=== PATIENT | female | born 1960 | race Caucasian/White ===

== ENCOUNTER 2019-01-15 11:32 | Emergency (ER) | payer MEDICARE, SELFPAY ==
[2019-01-15 11:34] VITALS: BP 111/67; PULSE 102; RESP 20; TEMP 36.8; O2SAT 93
--- NOTE | 2019-01-15 11:45 | NUR.NOTE ---
Nursing Note: pt states she takes about 30 pills on a daily basis- is unable to remember what medications she takes. Prescriptions are written by [facility]. Will attempt to get records.
--- NOTE | 2019-01-15 11:50 | DI.RAD_ITS ---
SYMPTOMS/DIAGNOSIS: BACK PAIN FOR 2 HOURS LUMBAR SPINE: There are no prior comparison exams. There is hardware at the L4-5 level related to previous posterior fusion. There is severe narrowing of the L5-S1 disc space and facet degenerative changes. There is also moderate narrowing of the L3-4 disc space. The more superior disc spaces are well maintained. No fracture, spondylolysis or spondylolisthesis is seen. IMPRESSION: Prior L4-5 posterior fusion. Degenerative changes at L3-4 and L5-S1.
--- NOTE | 2019-01-15 11:54 | ED.GENADUL_ITS ---
Discharge Plan Disposition Patient Disposition: HOME Discharge Details Chief Complaint: Nk/Back Pain Primary Care Provider: [place] Noriega ED Provider: Arun Pizano Home Meds and New Rx's Prescriptions: New lidocaine [Lidoderm] 5 % adhesive patch,medicated 1 patch TP DAILY Qty: 30 RF: 0 Continued cyclobenzaprine 10 mg Tablet 10 mg PO TID PRNRF: 0 ziprasidone HCl 80 mg Capsule 80 mg PO BID RF: 0 albuterol sulfate 2.5 mg /3 mL (0.083 %) Solution For Nebulization 2.5 mg INHALATION Q4H PRNRF: 0 cetirizine 10 mg Tablet 10 mg PO DAILY RF: 0 minocycline 100 mg Capsule 100 mg PO BID RF: 0 sertraline 100 mg Tablet 200 mg PO DAILY RF: 0 clonazepam 1 mg Tablet 1 mg PO QID RF: 0 loperamide 2 mg Tablet 2 mg PO Q1-4H PRNRF: 0 clotrimazole 1 % Cream 1 appful VAGINAL QHS RF: 0 simvastatin 80 mg Tablet 80 mg PO QHS RF: 0 quetiapine 100 mg Tablet 100 mg PO QID RF: 0 trazodone 100 mg Tablet 100 mg PO QHS RF: 0 dicyclomine 20 mg Tablet 20 mg PO QID RF: 0 benzonatate 100 mg Capsule 100 mg PO TID RF: 0 lisinopril 10 mg Tablet 10 mg PO DAILY RF: 0 promethazine 25 mg Tablet 25 mg PO Q6H PRNRF: 0 magnesium oxide 500 mg Tablet 500 mg PO BID RF: 0 hydroxyzine HCl 25 mg Tablet 25 mg PO TID-QID PRNRF: 0 levothyroxine 200 mcg Tablet 200 mcg PO DAILY RF: 0 furosemide 20 mg Tablet 20 mg PO DAILY RF: 0 ibuprofen 600 mg Tablet 600 mg PO TID PRNRF: 0 albuterol sulfate [Ventolin HFA] 90 mcg/actuation Hfa Aerosol Inhaler 2 puff INHALATION Q6H PRNRF: 0 Estring 2 mg (7.5 mcg /24 hour) Ring 1 vag ring VAGINAL [id number] RF: 0 metformin 500 mg Tablet Extended Release 24hr 500 mg PO BID RF: 0 carbamazepine 100 mg Capsule, Er Multiphase 12 Hr 300 mg PO BID RF: 0 Lyrica 200 mg Capsule 200 mg PO BID RF: 0 diclofenac sodium [Voltaren] 1 % Gel 2 g TOPICAL QID RF: 0 oxycodone 10 mg Tablet 10 mg PO .Q 8 HOURS PRN PRNRF: 0 Dexilant 30 mg Capsule,Biphase Delayed Releas 30 mg PO DAILY RF: 0 mesalamine [Asacol HD] 800 mg Tablet,Delayed Release (Dr/Ec) 800 mg PO BID RF: 0 Tradjenta 5 mg Tablet 5 mg PO DAILY RF: 0 Narcan 4 mg/actuation [place],Non-Aerosol 1 spray INTRANASAL ONCE PRNRF: 0 Discharge Data Discharge Date/Time-TO BE ENTERED AT DEPARTURE: 01/15/19 13:40 Medical Decision Making Patient presenting to the emergency department for chief complaint of back pain. Patient states that she was attempting to help her significant other off the floor when she aggravated her back. She states chronic ongoing pain and discomfort with her back that is treated with narcotics by her primary care provider. Patient is ambulatory with use of a walker which she states is her baseline, no neurological deficits, no saddle anesthesia, no fever no chills, distal sensation and reflexes are intact equal bilateral. Patient has no signs of cauda equina, epidural abscess, cord compression, or other emergent back pain diagnoses I was able to obtain patient's primary care records which does verify that she is on narcotic pain medication which she states that she did not take this morning. I feel that it is reasonable to give patient single dose of narcotic pain medication while in the emergency department along with lidocaine patch. Otherwise radiological imaging of the lumbar spine may be warranted given previous surgeries but highly suspect lumbar strain due to the lifting event. Review of x-ray imaging shows no acute change per radiologist. Patient reassessed and seems sedate and still requesting more pain medication. Given patient's history of opiate use on all ongoing basis, her level of sedation, and concern for opiate use I informed patient that I was agreeable to giving her nonnarcotic for her pain which she requested acetaminophen. Patient was given this and otherwise informed to follow-up with her primary care provider due to her chronic pain issues. Patient was prescribed lidocaine patches for home use. After discussion of diagnosis and plan of care patient has no further needs, questions, or concerns and states clear understanding to return to the emergency department for any worsening symptoms. HPI General Mode of arrival: ambulatory . Date/Time Provider Initiated Documentation: 01/15/19 11:34 . Limitations to Documentation: no limitations . Information obtained by: patient and RN notes reviewed . History of Present Illness 58 year old F presents to the emergency department with the chief complaint of back pain, described as severe and similar to prior episodes, with intensity rated at 9. Quality is described as sharp, and is localized to the back. Patient started experiencing this hour(s) (2) and it has been constant. Movement worsens symptoms . Patient notes no other symptoms.. Patient did receive the following treatments prior to arrival, NSAID Related Data Home Medications Medication Instructions Recorded Confirmed Dexilant 30 mg PO DAILY 01/15/19 01/15/19 Estring 1 vag ring VAGINAL [id number] 01/15/19 01/15/19 Lyrica 200 mg PO BID 01/15/19 01/15/19 Narcan 1 spray INTRANASAL ONCE PRN 01/15/19 01/15/19 Tradjenta 5 mg PO DAILY 01/15/19 01/15/19 albuterol sulfate 2.5 mg INHALATION Q4H PRN 01/15/19 01/15/19 albuterol sulfate [Ventolin HFA] 2 puff INHALATION Q6H PRN 01/15/19 01/15/19 benzonatate 100 mg PO TID 01/15/19 01/15/19 carbamazepine 300 mg PO BID 01/15/19 01/15/19 cetirizine 10 mg PO DAILY 01/15/19 01/15/19 clonazepam 1 mg PO QID 01/15/19 01/15/19 clotrimazole 1 appful VAGINAL QHS 01/15/19 01/15/19 cyclobenzaprine 10 mg PO TID PRN 01/15/19 01/15/19 diclofenac sodium [Voltaren] 2 g TOPICAL QID 01/15/19 01/15/19 dicyclomine 20 mg PO QID 01/15/19 01/15/19 furosemide 20 mg PO DAILY 01/15/19 01/15/19 hydroxyzine HCl 25 mg PO TID-QID PRN 01/15/19 01/15/19 ibuprofen 600 mg PO TID PRN 01/15/19 01/15/19 levothyroxine 200 mcg PO DAILY 01/15/19 01/15/19 lidocaine [Lidoderm] 1 patch TP DAILY #30 each 01/15/19 lisinopril 10 mg PO DAILY 01/15/19 01/15/19 loperamide 2 mg PO Q1-4H PRN 01/15/19 01/15/19 magnesium oxide 500 mg PO BID 01/15/19 01/15/19 mesalamine [Asacol HD] 800 mg PO BID 01/15/19 01/15/19 metformin 500 mg PO BID 01/15/19 01/15/19 minocycline 100 mg PO BID 01/15/19 01/15/19 oxycodone 10 mg PO .Q 8 HOURS PRN PRN 01/15/19 01/15/19 promethazine 25 mg PO Q6H PRN 01/15/19 01/15/19 quetiapine 100 mg PO QID 01/15/19 01/15/19 sertraline 200 mg PO DAILY 01/15/19 01/15/19 simvastatin 80 mg PO QHS 01/15/19 01/15/19 trazodone 100 mg PO QHS 01/15/19 01/15/19 ziprasidone HCl 80 mg PO BID 01/15/19 01/15/19 Previous Rx's Medication Instructions Recorded lidocaine [Lidoderm] 1 patch TP DAILY #30 each 01/15/19 Allergies Allergy/AdvReac Type Severity Reaction Status Date / Time codeine AdvReac Itching Unverified 01/15/19 11:40 rofecoxib [From Vioxx] AdvReac Nausea Unverified 01/15/19 11:40 General Stated Complaint: Nk/Back Pain GAEL: 4 Review of Systems Constitutional Denies chills and Denies fever(s) Cardiovascular Denies chest pain and Denies dyspnea on exertion Respiratory Denies cough and Denies dyspnea on exertion Gastrointestinal Denies abdominal pain, Denies change in bowel habits, Denies diarrhea, Denies nausea and Denies vomiting Genitourinary Denies urinary incontinence Musculoskeletal Reports as per HPI and Reports back pain Neurologic Denies sensory deficit PFSH Medical History Cholecystectomy planned (Acute) Hypercholesteremia (Acute) Psychotic disorder (Acute) Depression (Chronic) Hypertension (Chronic) Schizophrenia (Chronic) Surgical History H/O tubal ligation (Chronic) Hx of appendectomy (Chronic) Social History Smoking/Tobacco Use Status: Current every day Tobacco Type: cigarettes Smoking cigarettes per day: 6 Alcohol Intake: never Drug use: Occasionally Substance use type: marijuana Do you feel safe at home: Yes Do you feel safe in your relationship?: Yes Exam Const General: cooperative and no acute distress Orientation: alert, awake and oriented x3 Neck Neck: normal visual inspection, full ROM and no meningeal signs Resp Effort & Inspection: normal respiratory effort Auscultation: clear to auscultation bilaterally Cardio Rate: regular rate Rhythm: regular rhythm Heart Sounds: S1 normal and S2 normal Back/Spine/Pelvis Thoracic/Lumbar Spine: pain with thoraco-lumbar ROM, thoraco-lumbar ROM limited, No thoracic spinal tenderness, lumbar spinal tenderness (Diffuse nonfocal) and straight leg raise positive Pelvis: no pain with anterior-posterior compression, no pain with lateral compression and buttock tenderness bilaterally Neuro General: alert, awake and oriented x3 DTR's: Rt Patellar: 2+, Lt Patellar: 2+, Rt Ankle: 2+ and Lt Ankle: 2+ Course Vital Signs Temperature 36.8 C 01/15/19 11:34 Pulse 102 H 01/15/19 11:34 Respiratory Rate 20 01/15/19 11:34 Blood Pressure 111/67 01/15/19 11:34 Pulse Oximetry 93 L 01/15/19 11:34 Temperature 36.8 C 01/15/19 11:34 Temperature Source Skin 01/15/19 11:34 Pulse 102 H 01/15/19 11:34 Respiratory Rate 20 01/15/19 11:34 Respiratory Effort Non-Labored 01/15/19 11:40 Blood Pressure 111/67 01/15/19 11:34 Blood Pressure Position Sitting 01/15/19 11:34 Pulse Oximetry 93 L 01/15/19 11:34 Oxygen Delivery Method Room Air 01/15/19 11:34 Oxygen Flow Rate 0 01/15/19 11:34 Pain Level 7 01/15/19 11:34
[2019-01-15] MEDS: Lidocaine 5% Patch 1 PATCH TP (11:58)
[2019-01-15] MEDS: oxyCODONE 5 MG TAB PO (12:45)
[2019-01-15] MEDS: Acetaminophen 325 MG TAB 650 MG PO (13:38)
== END 2019-01-15 13:40 | disposition home or self-care (01) ==
PROVIDERS: Emergency Provider Nurse Practitioner Family; PCP Nurse Practitioner Family
DX: M54.5 Low back pain (principal); G89.29 Other chronic pain; I10 Essential (primary) hypertension
CPT/HCPCS: 99283; 72110; 99282

== ENCOUNTER 2022-03-03 13:46 | Emergency (ER) | payer OTHER, MEDICAID, SELFPAY ==
[2022-03-03 14:18] VITALS: BP 123/98; PULSE 90; RESP 15; TEMP 36.6; O2SAT 93
--- NOTE | 2022-03-03 15:48 | ED.GENADUL_ITS ---
Discharge Plan Disposition Patient Disposition: HOME Condition: Stable Discharge Details Clinical Impression: Injury of toe on right foot Primary Care Provider: [place] Noriega ED Provider: Pebbles Beaver [place] Meds and New Rx's Prescriptions: No Action cyclobenzaprine 10 mg Tablet 10 mg PO TID PRN ziprasidone HCl 80 mg Capsule 80 mg PO BID albuterol sulfate 2.5 mg /3 mL (0.083 %) Solution For Nebulization 2.5 mg INHALATION Q4H PRN cetirizine 10 mg Tablet 10 mg PO DAILY minocycline 100 mg Capsule 100 mg PO BID sertraline 100 mg Tablet 200 mg PO DAILY clonazepam 1 mg Tablet 1 mg PO QID loperamide 2 mg Tablet 2 mg PO Q1-4H PRN clotrimazole 1 % Cream 1 appful VAGINAL QHS simvastatin 80 mg Tablet 80 mg PO QHS quetiapine 100 mg Tablet 100 mg PO QID trazodone 100 mg Tablet 100 mg PO QHS dicyclomine 20 mg Tablet 20 mg PO QID benzonatate 100 mg Capsule 100 mg PO TID lisinopril 10 mg Tablet 10 mg PO DAILY promethazine 25 mg Tablet 25 mg PO Q6H PRN magnesium oxide 500 mg Tablet 500 mg PO BID hydroxyzine HCl 25 mg Tablet 25 mg PO TID-QID PRN Rx Instructions: take with 50 mg dose for total 75 mg levothyroxine 200 mcg Tablet 200 mcg PO DAILY furosemide 20 mg Tablet 20 mg PO DAILY ibuprofen 600 mg Tablet 600 mg PO TID PRN albuterol sulfate [Ventolin HFA] 90 mcg/actuation Hfa Aerosol Inhaler 2 puff INHALATION Q6H PRN Estring 2 mg (7.5 mcg /24 hour) Ring 1 vag ring VAGINAL [id number] metformin 500 mg Tablet Extended Release 24hr 500 mg PO BID carbamazepine 100 mg Capsule, Er Multiphase 12 Hr 300 mg PO BID Rx Instructions: take 3 tabs AM, four tabs PM before bed pregabalin [Lyrica] 200 mg Capsule 200 mg PO BID diclofenac sodium [Voltaren] 1 % Gel 2 g TOPICAL QID oxycodone 10 mg Tablet 10 mg PO .Q 8 HOURS PRN PRN dexlansoprazole [Dexilant] 30 mg Capsule,Biphase Delayed Releas 30 mg PO DAILY mesalamine [Asacol HD] 800 mg Tablet,Delayed Release (Dr/Ec) 800 mg PO BID [place] 5 mg Tablet 5 mg PO DAILY naloxone [Narcan] 4 mg/actuation [place],Non-Aerosol 1 spray INTRANASAL ONCE PRN lidocaine [Lidoderm] 5 % adhesive patch,medicated 1 patch TP DAILY Qty: 30 0RF Rx Instructions: leave on most painful area for 12 hrs Discharge Instructions Instructions: Foot Contusion (ED) Additional Instructions: Wear the postop shoe as directed for comfort. Rest, ice, compression, elevation. Please take Tylenol or Ibuprofen with food every 4-6 hours as needed for pain and swelling. After you are able to weight-bear please josué tape your toes if needed. Should start feeling better in approximately 2 to 3 weeks. Follow up with primary care provider in 3-5 days. Return to ED sooner if any worsening or concerns. Increase oral fluids. Referrals: [place] Noriega [Primary Care Provider] - 1 week Medical Decision Making 72-year-old female presents to the ER with chief complaint of right second third fourth toe injury after stubbing it 2 days ago complaining of pain reports that she does not get her Percocet filled until tomorrow. She does have some contusions noted no obvious deformity CMS is intact. She is not insulin- dependent diabetic. 1 Percocet ordered, postop shoe and will discharge patient. HPI General Date/Time Provider Initiated Documentation: 03/03/22 13:56 . Related Data Home Medications Medication Instructions Recorded Confirmed albuterol sulfate 2.5 mg/3 mL 2.5 mg inhalation Q4H PRN 01/15/19 03/03/22 (0.083 %) solution for nebulization albuterol sulfate 90 mcg/actuation 2 puff inhalation Q6H PRN 01/15/19 03/03/22 aerosol inhaler (Ventolin HFA) benzonatate 100 mg capsule 100 mg PO TID 01/15/19 03/03/22 carbamazepine 100 mg 300 mg PO BID 01/15/19 03/03/22 capsule,extended release [id number] cetirizine 10 mg tablet 10 mg PO DAILY 01/15/19 03/03/22 clonazepam 1 mg tablet 1 mg PO QID 01/15/19 03/03/22 clotrimazole 1 % vaginal cream 1 appful vaginal QHS 01/15/19 03/03/22 cyclobenzaprine 10 mg tablet 10 mg PO TID PRN 01/15/19 03/03/22 dexlansoprazole 30 mg 30 mg PO DAILY 01/15/19 03/03/22 capsule,biphase delayed release (Dexilant) diclofenac sodium 1 % topical gel 2 g topical QID 01/15/19 03/03/22 (Voltaren) dicyclomine 20 mg tablet 20 mg PO QID 01/15/19 03/03/22 estradiol 2 mg (7.5 mcg/24 hour) 1 vag ring vaginal [id number] 01/15/19 03/03/22 vaginal ring (Estring) furosemide 20 mg tablet 20 mg PO DAILY 01/15/19 03/03/22 hydroxyzine HCl 25 mg tablet 25 mg PO TID-QID PRN 01/15/19 03/03/22 ibuprofen 600 mg tablet 600 mg PO TID PRN 01/15/19 03/03/22 levothyroxine 200 mcg tablet 200 mcg PO DAILY 01/15/19 03/03/22 lidocaine 5 % topical patch 1 patch topical DAILY #30 ea 01/15/19 03/03/22 (Lidoderm) linagliptin 5 mg tablet (Tradjenta) 5 mg PO DAILY 01/15/19 03/03/22 lisinopril 10 mg tablet 10 mg PO DAILY 01/15/19 03/03/22 loperamide 2 mg tablet 2 mg PO Q1-4H PRN 01/15/19 03/03/22 magnesium oxide 500 mg tablet 500 mg PO BID 01/15/19 03/03/22 mesalamine 800 mg tablet,delayed 800 mg PO BID 01/15/19 03/03/22 release (Asacol HD) metformin 500 mg tablet,extended 500 mg PO BID 01/15/19 03/03/22 release 24hr minocycline 100 mg capsule 100 mg PO BID 01/15/19 03/03/22 naloxone 4 mg/actuation nasal 1 spray intranasal ONCE PRN 01/15/19 03/03/22 spray (Narcan) oxycodone 10 mg tablet 10 mg PO .Q 8 HOURS PRN PRN 01/15/19 03/03/22 pregabalin 200 mg capsule (Lyrica) 200 mg PO BID 01/15/19 03/03/22 promethazine 25 mg tablet 25 mg PO Q6H PRN 01/15/19 03/03/22 quetiapine 100 mg tablet 100 mg PO QID 01/15/19 03/03/22 sertraline 100 mg tablet 200 mg PO DAILY 01/15/19 03/03/22 simvastatin 80 mg tablet 80 mg PO QHS 01/15/19 03/03/22 trazodone 100 mg tablet 100 mg PO QHS 01/15/19 03/03/22 ziprasidone HCl 80 mg capsule 80 mg PO BID 01/15/19 03/03/22 Previous Rx's Medication Instructions Recorded lidocaine 5 % topical patch 1 patch topical DAILY #30 ea 01/15/19 (Lidoderm) Allergies Allergy/AdvReac Type Severity Reaction Status Date / Time codeine AdvReac Itching Unverified 01/15/19 11:40 rofecoxib [From Vioxx] AdvReac Nausea Unverified 01/15/19 11:40 General Stated Complaint: Orthopedic GAEL: 4 Review of Systems Musculoskeletal Musculoskeletal: Reports as per HPI and Reports arthralgias Integumentary/Breasts Skin/Breast: Reports wounds (Contusion 2nd 3rd 4th toe) PFSH All Active Problems (Updated 03/03/22 @ 15:51 by Pebbles Beaver NP) Injury of toe on right foot (Acute) Medical History (Updated 03/03/22 @ 15:51 by Pebbles Beaver NP) Cholecystectomy planned Depression Hypercholesteremia Hypertension Psychotic disorder Schizophrenia Surgical History H/O tubal ligation Hx of appendectomy Social History Smoking/Tobacco Use Status: Current every day Tobacco Type: cigarettes Smoking risk assessment performed?: Yes Alcohol Intake: never Drug use: Occasionally Substance use type: marijuana Do you feel safe at home: Yes Do you feel safe in your relationship?: Yes Exam Extrem Right lower extremity: foot Details: normal capillary refill, tenderness (Tenderness contusion to the dorsum of her second third fourth toe) and ecchymosis dorsal 4th toe Details: multiple Ankle/foot/toe images: 1. Contusions no obvious deformity Course Vital Signs Vital signs: Vital Signs Temperature 36.6 C 03/03/22 14:18 Pulse 90 03/03/22 14:18 Respiratory Rate 15 03/03/22 14:18 Blood Pressure 123/98 H 03/03/22 14:18 Pulse Oximetry 93 03/03/22 14:18 Temperature 36.6 C 03/03/22 14:18 Temperature Source Temporal Artery Scan 03/03/22 14:18 Pulse 90 03/03/22 14:18 Respiratory Rate 15 03/03/22 14:18 Blood Pressure 123/98 H 03/03/22 14:18 Blood Pressure Position Sitting 03/03/22 14:18 Pulse Oximetry 93 03/03/22 14:18 Oxygen Delivery Method Room Air 03/03/22 14:18 Oxygen Flow Rate 0 03/03/22 14:18 Pain Level 9 03/03/22 14:18
[2022-03-03] MEDS: oxyCODONE 5 mg/Acetaminophen 325 mg TAB 1 TAB PO (16:17)
== END 2022-03-03 16:41 | disposition home or self-care (01) ==
PROVIDERS: Emergency Provider Registered Nurse Emergency; PCP Nurse Practitioner Family
DX: S90.121A Contusion of right lesser toe(s) without damage to nail, initial encounter (principal); I10 Essential (primary) hypertension; F17.210 Nicotine dependence, cigarettes, uncomplicated; W22.8XXA Striking against or struck by other objects, initial encounter
CPT/HCPCS: 99283; 99281

== ENCOUNTER 2023-03-10 16:51 | Emergency (ER) | payer OTHER, MEDICAID, SELFPAY ==
[2023-03-10 17:06] VITALS: BP 115/76; PULSE 109; RESP 20; TEMP 37.1; O2SAT 94
--- NOTE | 2023-03-10 19:57 | NUR.NOTE ---
@1900-Pt and spouse repeatedly asking when they will be placed in a room. Explained to both that there are no rooms at this time, but they would be seen as soon as we are capable. POC BG completed and is 167. Pt is A&Ox4, ambulatory independently.
--- NOTE | 2023-03-10 19:58 | NUR.NOTE ---
Pt states that she would like to be with her in his ed rm and no longer wants to be seen.
== END 2023-03-10 20:00 | disposition left against medical advice (07) ==
LOC: ER 16:56
PROVIDERS: PCP Physician Assistant Medical
DX: Z53.21 Procedure and treatment not carried out due to patient leaving prior to being seen by health care provider (principal)

== ENCOUNTER 2023-03-21 11:14 | Day surgery (SDC) | payer OTHER, MEDICAID, SELFPAY ==
[2023-03-21] VITALS (7 sets, daily range): BP systolic 151–172; BP diastolic 78–92; PULSE 91–101; RESP 17–21; TEMP 36.5–37.1; O2SAT 92–98; BMI 40.2
[2023-03-21] MEDS: Lactated Ringers 1,000 ML 80 ML IV (11:50)
[2023-03-21] MEDS: Tropicam./Phenyleph. (1/2.5%) 5 ML BTL OD ×3 (12:10→12:25)
[2023-03-21] MEDS: Tropicam./Phenyleph. (1/2.5%) 5 ML BTL OS ×3 (12:11→12:24)
--- NOTE | 2023-03-21 12:21 | W.ANESPRE ---
General Info Date of Service Date Performed: 03/21/23 Height: 5 ft 1 in Weight: 96.6 kg Body Mass Index (BMI): 40.2 Surgical Procedure: Operation Date: 03/21/23 13:10 Proposed Procedure Side Surgeon p Cataract Extraction with IOL Implant Bilateral Jason Nuno MD Meds Allergies and Home Medications Allergies Allergy/AdvReac Type Severity Reaction Status Date / Time aripiprazole Allergy Unknown Other (See Unverified 03/21/23 11:52 Comment) clindamycin Allergy Unknown Unverified 03/21/23 11:52 codeine AdvReac Itching Unverified 03/21/23 11:52 rofecoxib [From Vioxx] AdvReac Nausea Unverified 03/21/23 11:52 Home Medication Medication Instructions Recorded albuterol sulfate 2.5 mg/3 mL 2.5 mg inhalation Q4H PRN 01/15/19 (0.083 %) solution for nebulization albuterol sulfate 90 mcg/actuation 2 puff inhalation Q6H PRN 01/15/19 aerosol inhaler (Ventolin HFA) cetirizine 10 mg tablet 10 mg PO DAILY 01/15/19 diclofenac sodium 1 % topical gel 2 g topical QID 01/15/19 (Voltaren) ibuprofen 600 mg tablet 600 mg PO TID PRN 01/15/19 lisinopril 10 mg tablet 10 mg PO DAILY 01/15/19 naloxone 4 mg/actuation nasal 1 spray intranasal ONCE PRN 01/15/19 spray (Narcan) oxycodone 10 mg tablet 10 mg PO .Q 8 HOURS PRN PRN 01/15/19 sertraline 100 mg tablet 200 mg PO DAILY 01/15/19 atorvastatin 80 mg tablet 80 mg PO QHS 05/22/22 dexlansoprazole 30 mg 60 mg PO DAILY 05/22/22 capsule,biphase delayed release (Dexilant) ondansetron 4 mg disintegrating See Rx Instructions PO .COMPLEX 05/22/22 tablet sitagliptin phosphate 50 mg tablet 50 mg PO DAILY 05/22/22 (Januvia) amitriptyline 10 mg tablet 20 mg PO DAILY 05/29/22 baclofen 10 mg tablet See Rx Instructions PO DAILY 05/29/22 benzonatate 100 mg capsule 200 mg PO TID 05/29/22 clonazepam 1 mg tablet 1 mg PO .TID, prn 05/29/22 clotrimazole 1 % topical cream See Rx Instructions topical .QD PRN 05/29/22 dicyclomine 20 mg tablet 20 mg PO QID PRN 05/29/22 fluticasone propionate 50 1 spray intranasal DAILY 05/29/22 mcg/actuation nasal spray,suspension (Allergy Relief (fluticasone)) hydroxyzine HCl 25 mg tablet 25 mg PO TID PRN 05/29/22 insulin aspart U-100 100 unit/mL See Rx Instructions subcut TID 05/29/22 (3 mL) subcutaneous pen (Novolog FlexPen U-100 Insulin aspart) insulin detemir U-100 100 unit/mL 35 unit subcut BID 05/29/22 (3 mL) subcutaneous pen (Levemir FlexTouch U-100 Insulin) lamotrigine 25 mg tablet 100 mg PO BID 05/29/22 levothyroxine 200 mcg tablet See Rx Instructions PO DAILY 05/29/22 loperamide 2 mg capsule 2 mg PO QID PRN 05/29/22 magnesium oxide 500 mg tablet 500 mg PO .QD 05/29/22 psyllium husk 3.4 gram/5.4 gram 1 tbsp PO BID 05/29/22 oral powder quetiapine 100 mg tablet 100 mg PO TID 05/29/22 ziprasidone HCl 80 mg capsule 80 mg PO .QD 05/29/22 (Geodon) lactulose 10 gram/15 mL oral 30 ml PO BID 03/05/23 solution Current Visit Medications: Current Medications Generic Name Dose Route Start Last Admin Trade Name Radha PRN Reason Stop Dose Admin Acetaminophen 1,000 mg 03/21/23 06:00 Acetaminophen 500 Mg Tab PO 04/20/23 05:59 Q4H PRN PRN Balanced Salt Solution 500 ml 03/21/23 06:00 Balanced Salt Soln.-Plus 500 Ml Bag OP 04/20/23 05:59 DIRECTED PRACHI Ringer's Solution 1,000 mls @ 80 mls/hr 03/21/23 11:30 IV 04/20/23 11:29 INFUSION PRACHI Sodium Chloride 500 mls @ 0 mls/hr 03/21/23 11:26 Saline 500ml Bag IV 04/20/23 11:25 PRN PRN As Directed IV Miscellaneous Supplies 1 each 03/21/23 11:30 Iv Access IV 04/20/23 11:29 DIRECTED PRACHI Miscellaneous Medication 0 ml 03/21/23 06:00 Prednisolone 1%, Moxifloxacin 0.5%, Nepafenac 0.1% 5ml Btl OS 04/20/23 05:59 DIRECTED PRACHI Miscellaneous Medication 0 ml 03/21/23 06:00 03/21/23 12:19 Tropicam./Phenyleph. (1/2.5%) 5 Ml Btl OS 04/20/23 05:59 1 drp DIRECTED PRACHI Administration Miscellaneous Medication 0 ml 03/21/23 06:00 Prednisolone 1%, Moxifloxacin 0.5%, Nepafenac 0.1% 5ml Btl OU 04/20/23 05:59 DIRECTED PRACHI Miscellaneous Medication 5 ml 03/21/23 12:05 03/21/23 12:20 Tropicam./Phenyleph. (1/2.5%) 5 Ml Btl OD 04/20/23 12:04 1 drp DIRECTED PRACHI Administration Sodium Chloride 0 ml 03/21/23 11:26 Normal Saline Flush 10 Ml Syr IVP 04/20/23 11:25 PRN PRN Tetracaine HCl 0 ml 03/21/23 06:00 Tetracaine 0.5% 4 Ml Btl OS 04/20/23 05:59 DIRECTED PRACHI PFSH Active Problems Active Problems: Problem Status Onset Code Diabetes mellitus E11.9 COPD (chronic obstructive pulmonary disease) J44.9 Dyslipidemia E78.5 Hypothyroid E03.9 Chronic pain G89.29 Nail dystrophy L60.3 Lumbar disc herniation M51.26 Lumbago with sciatica M54.40 Tobacco use Z72.0 Nuclear age-related cataract, left eye H25.12 Posterior subcapsular age-related cataract of left eye H25.042 Nuclear age-related cataract, right eye H25.11 Posterior subcapsular age-related cataract, right eye H25.041 Medical History Medical History Anxiety Cholecystectomy planned Chronic constipation Depression Disorder of hyperalimentation GERD (gastroesophageal reflux disease) Herniated nucleus pulposus, lumbar Hypercholesteremia Hypertension Hyponatremia Meralgia paresthetica, left lower limb Pseudomeningocele Psychotic disorder Schizophrenia Medical History Comments:: 2x month cholo Surgical History Surgical History H/O tubal ligation History of lumpectomy breast Hx of appendectomy Hx of cholecystectomy Hx of colonoscopy Hx of endoscopy Hx of laparoscopy Previous back surgery x 5, (04/22/2018) Tobacco Smoking/Tobacco Use Status: Current every day Tobacco Type: cigarettes Smoking packs per day: 0.5 Smoking cigarettes per day: 10.0 Alcohol Alcohol Intake: never Substance Use Substance use: Occasionally Substance use type: marijuana Vital Signs and Lab Results Vital Signs Most Recent Vital Signs in EMR: Most Recent Vital Signs Temp Pulse Resp BP Pulse Ox 36.5 C 101 H 20 160/90 H 94 03/21/23 12:01 03/21/23 12:01 03/21/23 12:01 03/21/23 12:05 03/21/23 12:01 Point of Care Results Point of Care Results: Finger Stick Blood Glucose 186 03/21/23 11:34 Lab Results Blood Type / Crossmatch: No Data to Display Complete Blood Count: No Data to Display Complete Metabolic Panel: No Data to Display Liver Function Panel: No Data to Display Coagulation Panel: No Data to Display Cardiac Panel: No Data to Display Arterial Blood Gas: No Data to Display Venous Blood Gas: No Data to Display Pancreas Panel: No Data to Display Thyroid Panel: No Data to Display Infectious Disease: No Data to Display Blood Cultures: No Data to Display Toxicology Panel: No Data to Display Anesthesia Assessment and Plan Anesthesia History Personal History: No History of Anesthesia Complications Family History: No Family History of Anesthesia Complications Exercise Tolerance Exercise Tolerance: Metabolic Equivalents>4 Pertinent Negatives Pertinent Negatives: No Symptoms of GERD (states may have some active gerd symptoms now.) Cardiac & Pulmonary Exam Cardiac Exam: Normal S1/S2 Heart Sounds Pulmonary Exam: Clear Bilateral Breath Sounds Implantable Cardiac Device Does patient have a Pacemaker or an ICD?: No Airway Exam Known Difficult Airway: No Mallampati Class: 2 Mouth Opening: Normal (> 3cm) Thyromental Distance: Greater than 3 cm Neck Range of Motion: Full ROM Neck Circumference: Normal Teeth Condition: Edentulous ASA Classification ASA Score: ASA 3 Emergency Case?: No NPO Status NPO Status: NPO Clears >2 hours, Solids >8 hours Anesthesia Plan Resuscitation Status: Full Code Anesthesia Technique: General Anesthesia Airway Planned: Endotracheal Tube Monitors Used: Standard Monitors
[2023-03-21] MEDS: Balanced Salt Soln.-PLUS 500 ML BAG OP ×2 (13:05→13:30)
[2023-03-21] MEDS: Tetracaine 0.5% 4 ML BTL OS (13:07)
[2023-03-21] MEDS: Duovisc Viscoelastic System EACH 1 EACH ×2 (13:08→13:25)
[2023-03-21] MEDS: Lidocaine 1% Pres-Free 5 ML VIAL ×2 (13:09→13:26)
[2023-03-21] MEDS: Phenylephrine/Lidocaine (15/10) MG/ML 1 ML VIAL ×2 (13:10→13:27)
[2023-03-21] MEDS: Povidone-Iodine Ophth 30 ML BTL ×2 (13:11→13:27)
[2023-03-21] MEDS: Tetracaine 0.5% 4 ML BTL (13:28)
--- NOTE | 2023-03-21 13:51 | PDOC.DSDIS_ITS ---
Date of service: 03/21/23 Time of Service: 13:51 Discharge Plan Disposition Patient Disposition: Home Discharge Details Attending Provider: Jason Nuno Primary Care Provider: Anastasia Souza Home Meds and New Rx's Prescriptions: No Action Januvia 50 mg tablet 50 mg PO DAILY dexlansoprazole [Dexilant] 30 mg capsule,biphase delayed releas 60 mg PO DAILY atorvastatin 80 mg tablet 80 mg PO QHS ondansetron 4 mg tablet,disintegrating See Rx Instructions PO .COMPLEX Rx Instructions: orally; clotrimazole 1 % cream See Rx Instructions topical .QD PRN Rx Instructions: topically QD PRN; to affected areas loperamide 2 mg capsule 2 mg PO QID PRN Rx Instructions: administer after each loose stool until symptoms controlled; do not exceed 8 mg per 24 hrs dicyclomine 20 mg tablet 20 mg PO QID PRN Rx Instructions: abdominal cramping lamotrigine 25 mg tablet 100 mg PO BID amitriptyline 10 mg tablet 20 mg PO DAILY baclofen 10 mg tablet See Rx Instructions PO DAILY Rx Instructions: 1 tab BID; and 2 tabs QHS orally daily; fluticasone propionate [Allergy Relief (fluticasone)] 50 mcg/actuation spray,suspension 1 spray intranasal DAILY Rx Instructions: administer into each nostril hydroxyzine HCl 25 mg tablet 25 mg PO TID PRN psyllium husk 3.4 gram/5.4 gram powder 1 tbsp PO BID Rx Instructions: mix into at least 8 oz of water or juice before administering benzonatate 100 mg capsule 200 mg PO TID clonazepam 1 mg tablet 1 mg PO .TID, prn insulin aspart U-100 [Novolog FlexPen U-100 Insulin] 100 unit/mL (3 mL) insulin pen See Rx Instructions subcut TID Rx Instructions: 2u; subcutaneously three times a day; Levemir FlexTouch U100 Insulin 100 unit/mL (3 mL) insulin pen 35 unit subcut BID levothyroxine 200 mcg tablet See Rx Instructions PO DAILY Rx Instructions: 175mcg x 5d then 200mcg x 2d orally daily; magnesium oxide 500 mg tablet 500 mg PO .QD quetiapine 100 mg tablet 100 mg PO TID ziprasidone HCl [Geodon] 80 mg capsule 80 mg PO .QD Rx Instructions: give with food (meal/snack) albuterol sulfate 2.5 mg /3 mL (0.083 %) Solution For Nebulization 2.5 mg INHALATION Q4H PRN cetirizine 10 mg Tablet 10 mg PO DAILY sertraline 100 mg Tablet 200 mg PO DAILY lisinopril 10 mg Tablet 10 mg PO DAILY ibuprofen 600 mg Tablet 600 mg PO TID PRN albuterol sulfate [Ventolin HFA] 90 mcg/actuation Hfa Aerosol Inhaler 2 puff INHALATION Q6H PRN diclofenac sodium [Voltaren] 1 % Gel 2 g TOPICAL QID oxycodone 10 mg Tablet 10 mg PO .Q 8 HOURS PRN PRN naloxone [Narcan] 4 mg/actuation [place],Non-Aerosol 1 spray INTRANASAL ONCE PRN lactulose 10 gram/15 mL Solution 30 ml PO BID Discharge Instructions Stand Alone Forms: Post-op Topical Cataract, Jon Rizzoey (DSU) Discharge Orders Discharge Orders: Discharge Order (Routine); Ordered 03/21/23 Ordered By: Jason Nuno DS: Diagnosis Discharge Diagnosis (1) Nuclear age-related cataract, left eye: Status: Resolved (2) Posterior subcapsular age-related cataract of left eye: Status: Resolved (3) Nuclear age-related cataract, right eye: Status: Resolved (4) Posterior subcapsular age-related cataract, right eye: Status: Resolved
--- NOTE | 2023-03-21 13:52 | ROE_ITS ---
Date of service: 03/21/23 Time of Service: 13:53 Operative Note Operative Note DATE OF PROCEDURE: 03/21/23 PRE-OP DIAGNOSIS: Nuclear/posterior subcapsular cataract, both eyes POST-OP DIAGNOSIS: same PROCEDURE: Immediately sequential bilateral cataract extraction using phacoemulsification with intraocular lens implants, both eyes SURGEON: Jason Nuno ANESTHESIA TYPE: General LMA/ETT Refer to Anesthesia Record PATHOLOGY: none sent COMPLICATIONS: None Patient was transported to: PACU Patient's condition: stable Implants: Asif [place] CNA0T0 intraocular lenses both eyes Indications: Progressive decreased vision due to cataract, both eyes Procedure Description: CATARACT SURGERY OPERATIVE REPORT PREOPERATIVE DIAGNOSIS: Nuclear/posterior subcapsular cataract, both eyes POSTOPERATIVE DIAGNOSIS: Same OPERATION: Bilateral sequential cataract extraction using phacoemulsification with posterior chamber intraocular lens implant, both eyes IOL OS: IOL Welder Boilermaker/Model: Asif Clareon CNA0T0 IOL Power: + 20.0 diopters IOL Serial Number: [id number] Optic Diameter: 6.0mm Haptic/Overall Diameter: 13.0mm PHACO INFO OS: Asif Centurion Vision System with OZil and Active Fluidics Cumulative Dispersed Energy (CDE): 1.12 seconds IOL OD: IOL Welder Boilermaker/Model: Asif Clareon CNA0T0 IOL Power: + 20.5 diopters IOL Serial Number: [id number] Optic Diameter: 6.0mm Haptic/Overall Diameter: 13.0mm PHACO INFO OD: Asif [employer]urion Vision System with OZil and Active Fluidics Cumulative Dispersed Energy (CDE): 8.50 seconds SURGEON: Jason Nuno MD, CARLOS ANESTHESIA: Monitored Anesthesia Care (MAC), with local sub-tenon's anesthetic infiltration COMPLICATIONS: None SPECIMENS: None INDICATIONS FOR PROCEDURE: The patient is a 63-year-old lady with history of diminished visual acuity in both eyes secondary to the development of bilateral nuclear/posterior subcapsular cataract. She is significantly symptomatic that she desires cataract surgery and attempt to improve and maximize her vision. She is unable to undergo cataract surgery under local anesthesia with sedation, so general anesthesia is required. The option of bilateral immediately sequential same-day surgery was offered to the patient and she wished to proceed. See office notes for detailed information. PROCEDURE: The correct surgical eye was identified and marked as both eyes and the pupils were dilated in the preoperative area using mydriatics and cycloplegics. The dilated pupil size was 6.0 mm. . The patient was brought to the operating room where cardiopulmonary monitoring was instituted and surgical time-out was performed, confirming the correct operative eye and IOL power. General endotracheal anesthesia was administered. Topical anesthesia was administered and ophthalmic povidone-iodine 5% was instilled into the conjunctival fornices. The ken-ocular area was prepped with Betadine 10% solution and draped in the usual sterile fashion for intraocular surgery, including an aperture drape. A Tegaderm transparent film dressing was cut in half and used to cover the lashes and lid margins. Care was taken to sequester the lashes and lid margins under the Tegaderm dressing. A lid speculum was placed between the lids of the operative eye and the operating microscope was maneuvered into position. Attention was first directed to the right eye. Bj scissors were then used to make a conjunctival buttonhole approximately 6mm posterior to the limbus in the inferonasal quadrant. Blunt dissection was carried out to expose bare sclera, and a blunt-tipped sub-tenon?s anesthesia cannula was introduced and passed posteriorly along the globe where non- preserved plain lidocaine was injected into posterior sub-Tenon?s space. A sideport knife was used to make a paracentesis port at the 7:00 postion. Intraocular phenylephrine/lidocaine was injected into the anterior chamber. The anterior chamber was filled with Viscoat. A 2.6mm keratome knife was used to create a half-thickness groove at the limbus and then to construct a three-plane near-clear corneal tunnel extending 2.0mm into clear cornea at the 10:00 position. A flap was raised on the anterior capsule and capsulorhexis forceps were used to complete a continuous curvilinear capsulorhexis of 5.5 mm. Balanced salt solution was then used to perform cortical cleaving hydrodissection and nuclear hydrodelineation until the lens could be freely rotated within the capsular bag. The lens nucleus was then disassembled and removed within the capsular bag and iris plane using phacoemulsification. Residual cortical material was removed using the 45-degree angled silicone I/A tip with 0.3mm port. The posterior capsule was carefully polished to remove as much residual lens epithelial cells as safely possible. The capsular bag was then inflated and the anterior chamber deepened with viscoelastic. The lens implant described above was inserted into the capsular bag using the Asif Autonome preloaded injector. A Kuglen hook was used to dial the IOL into position. Residual viscoelastic was then removed first from posterior to the IOL, then from the anterior chamber using the I/A handpiece. The lens implant was noted to center nicely within the capsular bag. The incisions were stromally hydrated, and the anterior chamber was reformed using BSS. Then 0.4cc of moxifloxacin 1.5mg/ml were injected into the capsular bag and anterior chamber. The incisions were checked with a Weck spear and found to be secure. Several drops of ophthalmic povidone-iodine 5% were then applied to the eye followed by two drops of Imprimis combination prednisolone/moxifloxacin/nepafenac solution. The drapes were removed and a clear plastic protective eye shield was placed over the eye. Attention was then directed toward the left eye, where an entirely new set of instruments, tubing, medications, fluids, gowns, gloves, and drapes were used. Topical anesthesia was administered and ophthalmic povidone-iodine 5% was instilled into the conjunctival fornices. The ken-ocular area was prepped with Betadine 10% solution and draped in the usual sterile fashion for intraocular surgery, including an aperture drape. A Tegaderm transparent film dressing was cut in half and used to cover the lashes and lid margins. Care was taken to sequester the lashes and lid margins under the Tegaderm dressing. A lid speculum was placed between the lids of the operative eye and the operating microscope was maneuvered into position. Bj scissors were then used to make a conjunctival buttonhole approximately 6mm posterior to the limbus in the inferonasal quadrant. Blunt dissection was carried out to expose bare sclera, and a blunt-tipped sub-tenon?s anesthesia cannula was introduced and passed posteriorly along the globe where non- preserved plain lidocaine was injected into posterior sub-Tenon?s space. A sideport knife was used to make a paracentesis port at the 1:00 postion. Intraocular phenylephrine/lidocaine was injected into the anterior chamber. The anterior chamber was filled with Viscoat. A 2.6mm keratome knife was used to create a half-thickness groove at the limbus and then to construct a three-plane near-clear corneal tunnel extending 2.0mm into clear cornea at the 330 o'clock position. A flap was raised on the anterior capsule and capsulorhexis forceps were used to complete a continuous curvilinear capsulorhexis of 5.5 mm. Balanced salt solution was then used to perform cortical cleaving hydrodissection and nuclear hydrodelineation until the lens could be freely rotated within the capsular bag. The lens nucleus was then disassembled and removed within the capsular bag and iris plane using phacoemulsification. Residual cortical material was removed using the 45-degree angled silicone I/A tip with 0.3mm port. The posterior capsule was carefully polished to remove as much residual lens epithelial cells as safely possible. The capsular bag was then inflated and the anterior chamber deepened with viscoelastic. The lens implant described above was inserted into the capsular bag using the Asif PEAK-ITe preloaed injector.. A Kuglen hook was used to dial the IOL into position. Residual viscoelastic was then removed first from posterior to the IOL, then from the anterior chamber using the I/A handpiece. The lens implant was noted to center nicely within the capsular bag. The incisions were stromally hydrated, and the anterior chamber was reformed using BSS. Then 0.5cc of moxifloxacin 1.0mg/ml were injected into the capsular bag and anterior chamber. The incisions were checked with a Weck spear and found to be secure. Several drops of ophthalmic povidone-iodine 5% were then applied to the eye followed by two drops of Imprimis combination prednisolone/moxifloxacin/nepafenac. The drapes were removed and a clear plastic protective eye shield was placed over the eye. The patient was then returned to Same Day Surgery in stable condition.
--- NOTE | 2023-03-21 14:51 | W.ANESPOSTOP ---
Postoperative Evaluation Date, Time and Location Date Performed: 03/21/23 Time Performed: 14:51 Patient Location: Day Surgery Unit Vital Signs Most Recent Imported Vital Signs: Most Recent Vital Signs Temp Pulse Resp BP Pulse Ox 36.9 C 91 H 18 160/88 H 92 03/21/23 14:17 03/21/23 14:17 03/21/23 14:17 03/21/23 14:17 03/21/23 14:17 Pain Score Most Recent Pain Score: Most Recent Pain Score Pain Level 0 03/21/23 14:17 Assessment Mental Status: Awake (Alert & Oriented to Patient Baseline) Airway and Respiratory Function: Patent airway with normal (patient baseline) respiratory exam Cardiovascular Function: Hemodynamically Stable Hydration Status: Adequately Hydrated Nausea & Vomiting: No Nausea or Vomiting Pain: Pt. Denies Any Pain Peripheral Nerve Block: Other (Local by Dr. Nuno)
== END 2023-03-21 16:00 | disposition home or self-care (01) ==
PROVIDERS: PCP Physician Assistant Medical; Visit Provider Ophthalmology
PROC: (CPT 66984; principal; 2023-03-21 13:00)
DX: H25.042 Posterior subcapsular polar age-related cataract, left eye (principal); H25.11 Age-related nuclear cataract, right eye; H25.12 Age-related nuclear cataract, left eye; I10 Essential (primary) hypertension; K21.9 Gastro-esophageal reflux disease without esophagitis
CPT/HCPCS: 66984; V2632; J1100; J2001; J2405; J2704

== ENCOUNTER → 2025-04-18 14:55 | Outpatient (BNVA) | payer MEDICARE, MEDICAID, SELFPAY | PROVIDERS: PCP Specialist/Technologist Athletic Trainer; Referring Provider Specialist/Technologist Athletic Trainer; Visit Provider Podiatrist | DX: L60.3 Nail dystrophy (principal); B35.1 Tinea unguium; E11.59 Type 2 diabetes mellitus with other circulatory complications; R09.89 Other specified symptoms and signs involving the circulatory and respiratory systems; R20.8 Other disturbances of skin sensation; L65.9 Nonscarring hair loss, unspecified; R60.0 Localized edema; L60.8 Other nail disorders; L60.2 Onychogryphosis | CPT/HCPCS: 11719; G0127 ==